=== PATIENT | male | born 1940 | race Caucasian/White ===

== ENCOUNTER → 2021-01-11 | Outpatient (CLI) | payer OTHER ==
--- NOTE | 2021-01-21 22:30 | SLEEP ---
[address] [address] SLEEP STUDY REPORT Name: NOREEN SANDOVAL JR Room: [facility].#: [id number] Admission: 01/11/21 Attend Phys: Amauri Eucedaalleghany [facility] Discharge: Date of : 42 Report #: [id number] THIS REPORT FOR: cc: [facility] - Clinic physician unknown [facility] - Clinic physician unknown Noah Parks MD ~ DATE OF STUDY: 01/11/2021 PULMONARY FUNCTION TEST Only a spirometry was performed. The FEV1/FVC ratio is decreased to 38% with an FVC decreased to 69% and FEV1 decreased to 37%. The FEF 25-75 is also decreased only 15%. After the administration of a bronchodilator, there is a 17% increase in FEV1. The patient's post-bronchodilator FEV1 is 1.05 liters. This, however, is less than 200 mL the flow volume loop is concave upwards. IMPRESSION: Severe obstruction with some improvement with a bronchodilator, which is below the criteria for full reversibility. <ELECTRONICALLY SIGNED> By: Noah Parks MD 01/21/21 2230 1527 [id number] Parks MD /nt
== END ==
LOC: M.PUL 11:50
PROVIDERS: ATTEND Chiropractor
DX: C34.90 Malignant neoplasm of unspecified part of unspecified bronchus or lung (principal); R94.2 Abnormal results of pulmonary function studies